=== PATIENT | male | born 1970 | race Caucasian/White ===

== ENCOUNTER 2019-03-17 11:30 | Emergency (ER) | payer OTHER ==
[~2019-03-17] VITALS: Ht 195.6 cm; Wt 108.9 kg
[2019-03-17 11:52] VITALS: BP 132/94
[2019-03-17] MEDS ORDERED: CENTANY30 GM TOP (12:11)
[2019-03-17] MEDS ORDERED: BACTRIM DS TAB1 EAC1 PO (12:11)
[2019-03-17] MEDS ORDERED: KEFLEX500 M1 PO (12:11)
== END 2019-03-17 12:20 | disposition home or self-care (01) ==
LOC: M.ERS 11:30
DX: L03.211 Cellulitis of face (principal); L25.3 Unspecified contact dermatitis due to other chemical products

== ENCOUNTER 2019-12-27 16:49 | Emergency (ER) | payer OTHER ==
[~2019-12-27] VITALS: Ht 195.6 cm; Wt 104.3 kg
[~2019-12-27 16:49] MED LIST: BACTRIM DS TAB1 EAC1 PO; CENTANY30 GM TOP; KEFLEX500 M1 PO
[2019-12-27 18:01] LABS: ABSOLUTE BASOPHILS 0.1 thou/uL (0.0-0.2); ABSOLUTE EOSINOPHILS 0.1 thou/uL (0.0-0.7); ABSOLUTE LYMPHOCYTES 3.4 thou/uL (0.8-5.3); ABSOLUTE MONOCYTES 0.4 thou/uL (0.0-1.2); ABSOLUTE NEUTROPHILS 3.1 thou/uL (1.6-8.1); BASOPHILS 1.3 %; EOSINOPHILS 1.2 %; HEMATOCRIT 40.2 % (42.0-52.0); LYMPHOCYTES 47.9 %; MCH 35.3 pg (26.0-34.0); MCHC 34.7 g/dL (28.0-37.0); MCV 101.6 fL (80.0-100.0); NUCLEATED RBCS 0 /100WBC; PLATELET COUNT* 262 thou/uL (150-400); POLYS 43.6 %; RBC 3.96 mil/uL (4.50-6.00); WBC 7.1 thou/uL (4.0-11.0)
[2019-12-27 18:10] LABS: CREATININE 0.9 mg/dL (0.6-1.3); POTASSIUM 3.6 mmol/L (3.5-5.1)
[2019-12-27 18:11] LABS: URINE BILIRUBIN NEGATIVE (Negative); URINE BLOOD NEGATIVE (Negative); URINE CLARITY CLEAR; URINE COLOR YELLOW; URINE GLUCOSE-RANDOM NEGATIVE (Negative); URINE KETONES NEGATIVE (Negative); URINE LEUKOCYTES-REFLEX NEGATIVE (Negative); URINE NITRITE-REFLEX NEGATIVE (Negative); URINE PROTEIN NEGATIVE (Negative); URINE SPECIFIC GRAVITY <= 1.005 (1.005-1.030); URINE UROBILINOGEN 0.2 E.U./dl (0.2-1.0)
[2019-12-27 18:14] LABS: APTT 25.7 Seconds (25.0-31.3); PROTIME 10.7 Seconds (9.20-11.50)
[2019-12-27 18:15] LABS: ALBUMIN 3.5 g/dL (3.4-5.0); TOTAL BILIRUBIN 0.4 mg/dL (<0.1-1.0); TOTAL PROTEIN 7.8 g/dL (6.4-8.2)
[2019-12-27 18:18] LABS: AMP/METHAMP Negative (Negative); BARBITURATES Negative (Negative); BENZODIAZEPINES Negative (Negative); COCAINE Negative (Negative); METHADONE Negative (Negative); OPIATES Negative (Negative); PCP Negative (Negative); THC POSITIVE (Negative)
[2019-12-27 18:28] LABS: CALCIUM 8.7 mg/dL (8.5-10.1)
[2019-12-27 20:14] VITALS: BP 139/88
--- NOTE | 2019-12-28 13:46 | EKG ---
[place] [address] ELECTROCARDIOGRAM REPORT Name: CHENCHO DELACRUZ [id number] Admission: 12/27/19 Attend Phys: Discharge: 12/27/19 Date of : 74 Date of Service: 12/27/19 1654 Report #: [id number] THIS REPORT FOR: //name// [facility] ED Test Date: 2019-12-27 Test Time: 16:54:19 Pat Name: CHENCHO DELACRUZ Department: Room: Gender: Architectural Intern: [facility] : 1970 Requested By: Gloria Koroma Order Number: [id number] MD: Chencho Luque Measurements Intervals [place] Rate: 79 P: 77 [place]: 174 QRS: 39 QRSD: 94 T: 50 QT: 398 QTc: 457 Interpretive Statements Sinus rhythm No previous ECG available for comparison Electronically Signed On 12-28-2019 13:46:19 CDT by Chencho Luque [email or web address] <ELECTRONICALLY SIGNED> By: Chencho Luque MD, [facility] 12/28/19 1346 1654 1654 Chencho Luque MD, FACC /EPI
== END 2019-12-27 20:05 | disposition home or self-care (01) ==
LOC: M.ERS 16:49
PROVIDERS: Physician Assistant
DX: I95.1 Orthostatic hypotension (principal); R55 Syncope and collapse; J44.9 Chronic obstructive pulmonary disease, unspecified; F17.210 Nicotine dependence, cigarettes, uncomplicated; Z79.899 Other long term (current) drug therapy

== ENCOUNTER 2020-01-12 09:50 | Inpatient (IN) | payer OTHER ==
[~2020-01-12] VITALS: Ht 195.6 cm; Wt 104.3 kg
[2020-01-12 10:04] VITALS: BP 143/94
[2020-01-12 10:37] LABS: ABSOLUTE BASOPHILS 0.1 thou/uL (0.0-0.2); ABSOLUTE EOSINOPHILS 0.1 thou/uL (0.0-0.7); ABSOLUTE LYMPHOCYTES 2.4 thou/uL (0.8-5.3); ABSOLUTE MONOCYTES 0.6 thou/uL (0.0-1.2); ABSOLUTE NEUTROPHILS 5.3 thou/uL (1.6-8.1); BASOPHILS 1.1 %; EOSINOPHILS 1.5 %; HEMATOCRIT 42.1 % (42.0-52.0); HEMOGLOBIN 14.8 gm/dL (14.0-18.0); LYMPHOCYTES 28.2 %; MCH 35.5 pg (26.0-34.0); MCHC 35.1 g/dL (28.0-37.0); MONOCYTES 6.9 %; MPV 9.3 fl. (7.2-11.1); NUCLEATED RBCS 0 /100WBC; PLATELET COUNT* 222 thou/uL (150-400); POLYS 62.3 %; RBC 4.17 mil/uL (4.50-6.00); RDW-CV 13.5 % (10.5-14.5); WBC 8.6 thou/uL (4.0-11.0)
[2020-01-12 10:51] LABS: CALCIUM 8.5 mg/dL (8.5-10.1); CREATININE 0.9 mg/dL (0.6-1.3); POTASSIUM 3.7 mmol/L (3.5-5.1)
[2020-01-12 10:55] LABS: ALBUMIN 3.2 g/dL (3.4-5.0); TOTAL BILIRUBIN 0.3 mg/dL (<0.1-1.0); TOTAL PROTEIN 7.8 g/dL (6.4-8.2)
[2020-01-12 12:49] VITALS: BP 154/105
[2020-01-12 17:44] VITALS: BP 135/88
[2020-01-12 20:29] VITALS: BP 134/91
[2020-01-13 04:17] LABS: ABSOLUTE BASOPHILS 0.1 thou/uL (0.0-0.2); ABSOLUTE EOSINOPHILS 0.2 thou/uL (0.0-0.7); ABSOLUTE LYMPHOCYTES 2.5 thou/uL (0.8-5.3); ABSOLUTE MONOCYTES 0.4 thou/uL (0.0-1.2); ABSOLUTE NEUTROPHILS 5.3 thou/uL (1.6-8.1); BASOPHILS 1.1 %; EOSINOPHILS 2.2 %; HEMATOCRIT 39.3 % (42.0-52.0); HEMOGLOBIN 13.9 gm/dL (14.0-18.0); LYMPHOCYTES 29.3 %; MCH 35.6 pg (26.0-34.0); MCHC 35.5 g/dL (28.0-37.0); MCV 100.3 fL (80.0-100.0); MPV 9.6 fl. (7.2-11.1); NUCLEATED RBCS 0 /100WBC; PLATELET COUNT* 196 thou/uL (150-400); POLYS 62.4 %; RBC 3.92 mil/uL (4.50-6.00); RDW-CV 13.3 % (10.5-14.5); WBC 8.4 thou/uL (4.0-11.0)
[2020-01-13 04:30] LABS: CREATININE 0.8 mg/dL (0.6-1.3); POTASSIUM 3.2 mmol/L (3.5-5.1)
[2020-01-13 07:46] VITALS: BP 136/92
[2020-01-13 15:21] VITALS: BP 138/87
[2020-01-13 19:41] VITALS: BP 140/96
[2020-01-14 03:57] LABS: ABSOLUTE BASOPHILS 0.1 thou/uL (0.0-0.2); ABSOLUTE EOSINOPHILS 0.2 thou/uL (0.0-0.7); ABSOLUTE LYMPHOCYTES 2.1 thou/uL (0.8-5.3); ABSOLUTE MONOCYTES 0.3 thou/uL (0.0-1.2); ABSOLUTE NEUTROPHILS 3.7 thou/uL (1.6-8.1); BASOPHILS 1.1 %; EOSINOPHILS 3.2 %; HEMATOCRIT 38.3 % (42.0-52.0); HEMOGLOBIN 13.4 gm/dL (14.0-18.0); LYMPHOCYTES 33.2 %; MCH 35.2 pg (26.0-34.0); MCHC 34.9 g/dL (28.0-37.0); MONOCYTES 5.2 %; MPV 9.7 fl. (7.2-11.1); NUCLEATED RBCS 0 /100WBC; PLATELET COUNT* 184 thou/uL (150-400); POLYS 57.3 %; RBC 3.79 mil/uL (4.50-6.00); RDW-CV 13.3 % (10.5-14.5); WBC 6.4 thou/uL (4.0-11.0)
[2020-01-14 04:12] LABS: ALBUMIN 2.7 g/dL (3.4-5.0); CALCIUM 8.2 mg/dL (8.5-10.1); CREATININE 0.8 mg/dL (0.6-1.3); POTASSIUM 3.6 mmol/L (3.5-5.1); TOTAL BILIRUBIN 0.7 mg/dL (<0.1-1.0); TOTAL PROTEIN 6.8 g/dL (6.4-8.2)
[2020-01-14 08:00] VITALS: BP 138/91
[2020-01-14] MEDS ORDERED: PROTONIX40 M2 PO (11:13)
[2020-01-14 19:30] VITALS: BP 126/93
[2020-01-15 04:34] LABS: ABSOLUTE BASOPHILS 0.1 thou/uL (0.0-0.2); ABSOLUTE EOSINOPHILS 0.2 thou/uL (0.0-0.7); ABSOLUTE LYMPHOCYTES 2.2 thou/uL (0.8-5.3); ABSOLUTE MONOCYTES 0.4 thou/uL (0.0-1.2); ABSOLUTE NEUTROPHILS 3.3 thou/uL (1.6-8.1); BASOPHILS 1.3 %; EOSINOPHILS 3.2 %; HEMATOCRIT 39.9 % (42.0-52.0); HEMOGLOBIN 13.9 gm/dL (14.0-18.0); LYMPHOCYTES 35.9 %; MCH 35.3 pg (26.0-34.0); MCHC 34.9 g/dL (28.0-37.0); MCV 101.1 fL (80.0-100.0); MONOCYTES 5.7 %; MPV 9.7 fl. (7.2-11.1); NUCLEATED RBCS 0 /100WBC; PLATELET COUNT* 188 thou/uL (150-400); POLYS 53.9 %; RBC 3.95 mil/uL (4.50-6.00); RDW-CV 13.6 % (10.5-14.5); WBC 6.2 thou/uL (4.0-11.0)
[2020-01-15 05:23] LABS: CALCIUM 8.2 mg/dL (8.5-10.1); CREATININE 0.7 mg/dL (0.6-1.3); POTASSIUM 3.4 mmol/L (3.5-5.1)
[2020-01-15 08:03] VITALS: BP 132/83
[2020-01-15 20:00] VITALS: BP 138/90
[2020-01-16 04:00] VITALS: BP 152/91
[2020-01-16 04:36] LABS: ABSOLUTE BASOPHILS 0.1 thou/uL (0.0-0.2); ABSOLUTE EOSINOPHILS 0.2 thou/uL (0.0-0.7); ABSOLUTE LYMPHOCYTES 2.2 thou/uL (0.8-5.3); ABSOLUTE MONOCYTES 0.4 thou/uL (0.0-1.2); ABSOLUTE NEUTROPHILS 2.9 thou/uL (1.6-8.1); BASOPHILS 1.3 %; EOSINOPHILS 3.7 %; HEMATOCRIT 40.1 % (42.0-52.0); HEMOGLOBIN 13.9 gm/dL (14.0-18.0); LYMPHOCYTES 38.4 %; MCH 35.3 pg (26.0-34.0); MCHC 34.6 g/dL (28.0-37.0); MONOCYTES 7.2 %; NUCLEATED RBCS 0 /100WBC; PLATELET COUNT* 194 thou/uL (150-400); POLYS 49.4 %; RBC 3.93 mil/uL (4.50-6.00); RDW-CV 13.3 % (10.5-14.5); WBC 5.8 thou/uL (4.0-11.0)
[2020-01-16 04:58] LABS: CALCIUM 8.5 mg/dL (8.5-10.1); CREATININE 0.8 mg/dL (0.6-1.3); POTASSIUM 3.9 mmol/L (3.5-5.1)
[2020-01-16 07:42] VITALS: BP 138/93
[2020-01-16] MEDS ORDERED: NORCO 5-325 TA1 EAC2 PO (08:23)
[2020-01-16] MEDS ORDERED: CLEOCIN HCL300 MG PO (08:23)
[2020-01-16 08:40] VITALS: BP 138/93
[2020-01-16 09:38] VITALS: BP 138/93
[2020-01-16 11:43] VITALS: BP 138/93
[2020-01-16 13:02] VITALS: BP 138/93
== END 2020-01-16 13:06 | disposition home or self-care (01) | DRG 603 ==
LOC: M.ERS 09:50 → M.ORTHSURG 11:09 → M.TBA-ER 11:09 → M.ORTHSURG 12:56
PROVIDERS: Emergency Medicine Emergency Medical Services; ADMIT Internal Medicine; ATTEND Internal Medicine
DX: L03.115 Cellulitis of right lower limb (principal); R65.10 Systemic inflammatory response syndrome (SIRS) of non-infectious origin without acute organ dysfunction; E87.2 Acidosis; J44.9 Chronic obstructive pulmonary disease, unspecified; F10.10 Alcohol abuse, uncomplicated; Y90.9 Presence of alcohol in blood, level not specified; F17.210 Nicotine dependence, cigarettes, uncomplicated; S80.811A Abrasion, right lower leg, initial encounter; Z20.828 Contact with and (suspected) exposure to other viral communicable diseases; V86.99XA Unspecified occupant of other special all-terrain or other off-road motor vehicle injured in nontraffic accident, initial encounter; Y93.89 Activity, other specified; Y92.89 Other specified places as the place of occurrence of the external cause; Y99.8 Other external cause status